=== PATIENT | male | born 1995 | race Asian ===

== ENCOUNTER → 2019-04-09 | Outpatient (CLI) | payer OTHER | END | disposition home or self-care (01) | LOC: EEVIPCON 11:40 → RAH 11:40 | PROVIDERS: ATTEND Internal Medicine | DX: S40.911A Unspecified superficial injury of right shoulder, initial encounter (principal); X58.XXXA Exposure to other specified factors, initial encounter; Y93.89 Activity, other specified; Y92.89 Other specified places as the place of occurrence of the external cause; Y99.8 Other external cause status | CPT/HCPCS: 73030 ==